=== PATIENT | female | born 1985 | race Caucasian/White ===

== ENCOUNTER 2016-12-05 12:23 | Emergency (ER) | payer OTHER ==
[2016-12-05 12:30] VITALS: BP 107/65; PULSE 83; TEMP 98; BMI 20.2
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
[2016-12-05] MEDS ORDERED: KETOROLAC TROMETHAMINE 60 MG/2 ML VIAL ONE (13:06)
[2016-12-05] MEDS ORDERED: KETOROLAC TROMETHAMINE 60 MG/2 ML VIAL IM ONE (13:25)
[2016-12-05 14:19] LABS: HIV 1 & 2 AB NEGATIVE; HIV 1 AGp24 NEGATIVE
== END 2016-12-05 14:33 | disposition home or self-care (01) ==
LOC: JERFT 12:23
PROC: 3E0233Z Introduction of Anti-inflammatory into Muscle, Percutaneous Approach (ICD-10-PCS; principal; 2016-12-05)
DX: S16.1XXA Strain of muscle, fascia and tendon at neck level, initial encounter (principal); M62.838 Other muscle spasm; V43.62XA Car passenger injured in collision with other type car in traffic accident, initial encounter; Y92.414 Local residential or business street as the place of occurrence of the external cause; Y93.89 Activity, other specified; Y99.8 Other external cause status
CPT/HCPCS: 36415; 84703; 87389; 99281-25

== ENCOUNTER 2024-04-21 11:34 | Emergency (ER) | payer BC, OTHER ==
[2024-04-21 11:46] VITALS: BP 137/77; PULSE 74; RESP 22; TEMP 97.9; BMI 22.3
[2024-04-21] MEDS ORDERED: ONDANSETRON 4 MG/2 ML VIAL ONE (14:37)
[2024-04-21] MEDS ORDERED: ACETAMINOPHEN INJECTION 100 ML ONE (14:37)
[2024-04-21] MEDS: ONDANSETRON 4 MG/2 ML VIAL IVPUSH ONE (15:00)
[2024-04-21] MEDS: ACETAMINOPHEN 1000 MG/100 ML BAG IVPB ONE (15:06)
[2024-04-21] MEDS: SODIUM CHLORIDE 0.9% 500 ML INFUS.BAG IV ONE (15:06)
[2024-04-21 15:12] LABS: BASO % 0.9 % (0-2.0); EOS % 1.4 % (0-4.5); HEMATOCRIT 41.6 % (32.4-45.2); HEMOGLOBIN 14.2 GM/dL (10.7-15.3); LYMPH % 35.7 % (8-40); MCH 30.9 pg (25.7-33.7); MCHC 34.2 g/dl (32.0-36.0); MEAN CELL VOLUME 90.4 fl (80-96); MEAN PLT VOLUME 7.1 fl (7.5-11.1); MONO % 4.8 % (3.8-10.2); NEUT % 57.2 % (42.8-82.8); PLATELET COUNT 371 10^3/uL (134-434); RDW 13.1 % (11.6-15.6); WHITE BLOOD COUNT 8.4 K/mm3 (4.0-10.0)
[2024-04-21 15:23] LABS: EPI CELLS 24 /uL (0-25.1); HYALINE CASTS 0 /uL (0-3.1); URINE APPEARANCE CLEAR; URINE BACTERIA 595 /uL (0-1359); URINE BILIRUBIN NEGATIVE (NEGATIVE); URINE COLOR YELLOW; URINE GLUCOSE (UA) NEGATIVE (NEGATIVE); URINE KETONE NEGATIVE (NEGATIVE); URINE LEUK ESTERASE NEGATIVE (NEGATIVE); URINE NITRITE NEGATIVE (NEGATIVE); URINE PROTEIN NEGATIVE (NEGATIVE); URINE UROBILINOGEN 0.2 mg/dL (0.2-1.0); URINE WBC 23 /uL (0-25.8)
[2024-04-21 15:36] LABS: POTASSIUM 4.1 mmol/L (3.5-5.1)
[2024-04-21 15:38] LABS: CALCIUM 9.6 mg/dL (8.5-10.1)
[2024-04-21 15:39] LABS: ALBUMIN 4.3 g/dl (3.4-5.0); BLOOD UREA NITROGEN 6.2 mg/dL (7-18)
[2024-04-21 15:42] LABS: CREATININE 0.9 mg/dL (0.55-1.3)
[2024-04-21 15:43] LABS: BILIRUBIN,TOTAL 0.6 mg/dL (0.2-1)
[2024-04-21 16:32] LABS: HIV INTERPRETATION NEGATIVE (NEGATIVE)
== END 2024-04-21 20:12 | disposition left against medical advice (07) ==
LOC: JER 11:34
PROC: 3E033NZ Introduction of Analgesics, Hypnotics, Sedatives into Peripheral Vein, Percutaneous Approach (ICD-10-PCS; principal; 2024-04-21)
PROC: 3E033GC Introduction of Other Therapeutic Substance into Peripheral Vein, Percutaneous Approach (ICD-10-PCS; 2024-04-21)
PROC: 3E033GC Introduction of Other Therapeutic Substance into Peripheral Vein, Percutaneous Approach (ICD-10-PCS; 2024-04-21)
DX: R10.13 Epigastric pain (principal); R10.32 Left lower quadrant pain; R11.0 Nausea; R21 Rash and other nonspecific skin eruption; T78.40XA Allergy, unspecified, initial encounter
CPT/HCPCS: 36415; 74176-TC; 80053; 81003; 83690; 84703; 85025; 86803; 87086; 87389; 99284-25; J0131